=== PATIENT | female | born 1945 | race Caucasian/White ===

== ENCOUNTER 2017-04-19 13:03 | Inpatient (IN) | payer MEDICARE, OTHER ==
[~2017-04-19] VITALS: Ht 160 cm; Wt 54.4 kg
[~2017-04-19 13:03] MED LIST: Ampicillin/Sulbactam Sod 3 GM in NS 110 ML IVPB ONE; NS 1000ml 1,600 ML IVLG ONE
[2017-04-19 13:05] VITALS: BP 97/47
--- NOTE | 2017-04-19 13:30 | Diagnostic Imaging Report ---
Indication: Shortness of breath Technique: XRAY Chest 1v Comparison: None Findings: Heart size within normal limits. Atherosclerotic calcifications noted in the aorta. There are asymmetric patchy airspace opacities involving the left mid and lower lung. These findings are concerning for pneumonia. No exam pleural effusion. No definite pneumothorax. There is osteopenia and degenerative change of the spine. Degenerative change of the right shoulder also noted. Multiple surgical clips noted in the right upper quadrant. Impression: Asymmetric patchy airspace opacities in the left lung concerning for pneumonia. Clinical correlation and radiographic follow-up until resolution recommended.
[2017-04-19 13:46] LABS: HEMATOCRIT 36.7 % (37.0-47.0); HEMOGLOBIN 12.3 G/DL (12.0-16.0); MEAN CORPUSCULAR VOLUME 87 FL (80-99); PLATELET COUNT 387 K/UL (150-450); RED BLOOD COUNT 4.24 M/UL (4.20-5.40); RED CELL DISTRIBUTION WIDTH 12.3 % (11.6-14.8); WHITE BLOOD COUNT 19.5 K/UL (4.8-10.8)
--- NOTE | 2017-04-19 13:47 | Emergency Room Report ---
History of Present Illness General Chief Complaint: General Complaint Source: Medical Record Present Illness HPI Patient is a 71-year-old female who presented after a decreased blood pressure and fever. Patient about her skilled nursing. Patient noted have prior history dementia. Patient had been noted to be somewhat hypotensive. She was somewhat confused. History is limited by patient's mental status Allergies: Coded Allergies: PROCHLORPERAZINE (Verified Allergy, Intermediate, 04/19/17) Patient History Reviewed Nursing Documentation: PMH: Agreed, PSxH: Agreed Nursing Documentation-PMH Hx Diabetes: Yes Hx Neurological Problems: Yes - parkinsons,anemia Review of Systems All Other Systems: negative except mentioned in HPI Physical Exam Vital Signs Date Time Temp Pulse Resp B/P (MAP) Pulse Ox O2 Delivery O2 Flow Rate FiO2 04/19/17 12:41 98 16 96/41 99 Nasal Cannula 3.0 Sp02 EP Interpretation: reviewed, normal General Appearance: normal inspection, well appearing, alert, Chronically Ill Head: atraumatic ENT: normal ENT inspection, dry mucus membranes Neck: normal inspection, supple, no bony tend, limited range of motion Respiratory: normal inspection, no respiratory distress, no retraction, rales Cardiovascular #1: regular rate, rhythm, no edema Gastrointestinal: normal inspection, normal bowel sounds, non tender, soft, no guarding, no hernia Genitourinary: no CVA tenderness Musculoskeletal: normal inspection, back normal, normal range of motion Neurologic: normal inspection, responsive, speech normal Skin: normal inspection, normal color, no rash Medical Decision Making Diagnostic Impression: Primary Impression: Pneumonia Additional Impression: Severe sepsis ER Course Patient presented for fever. Differential diagnosis included wasn't limited to pneumonia, urinary tract infection, drug fever, allergic reaction, sepsis, cholecystitis, among others.Patient started on IV fluids as well as IV antibiotics after blood cultures are obtained. Patient was noted to have elevated lactic acid level. A repeat exam at 1430 showed slightly improvement in status and improved peripheral perfusion. A Hylton catheter was placed. Dr. Rupert Feldman was contacted for inpatient management Labs Test 04/19/17 13:38 White Blood Count 19.5 K/UL (4.8-10.8) Red Blood Count 4.24 M/UL (4.20-5.40) Hemoglobin 12.3 G/DL (12.0-16.0) Hematocrit 36.7 % (37.0-47.0) Mean Corpuscular Volume 87 FL (80-99) Mean Corpuscular Hemoglobin 29.1 PG (27.0-31.0) Mean Corpuscular Hemoglobin Concent 33.6 G/DL (32.0-36.0) Red Cell Distribution Width 12.3 % (11.6-14.8) Platelet Count 387 K/UL (150-450) Mean Platelet Volume 6.0 FL (6.5-10.1) Neutrophils (%) (Auto) % (45.0-75.0) Lymphocytes (%) (Auto) % (20.0-45.0) Monocytes (%) (Auto) % (1.0-10.0) Eosinophils (%) (Auto) % (0.0-3.0) Basophils (%) (Auto) % (0.0-2.0) Differential Total Cells Counted 100 Neutrophils % (Manual) 88 % (45-75) Lymphocytes % (Manual) 2 % (20-45) Monocytes % (Manual) 2 % (1-10) Eosinophils % (Manual) 0 % (0-3) Basophils % (Manual) 0 % (0-2) Band Neutrophils 8 % (0-8) Platelet Estimate Adequate Platelet Morphology Normal Red Blood Cell Morphology Normal Sodium Level 141 MMOL/L (136-145) Potassium Level 3.4 MMOL/L (3.5-5.1) Chloride Level 105 MMOL/L (98-107) Carbon Dioxide Level 27 MMOL/L (21-32) Anion Gap 9 mmol/L (5-15) Blood Urea Nitrogen 17 mg/dL (7-18) Creatinine 0.8 MG/DL (0.55-1.30) Estimat Glomerular Filtration Rate mL/min (>60) Glucose Level 150 MG/DL (74-106) Lactic Acid Level 3.70 mmol/L (0.66-2.22) Calcium Level 9.3 MG/DL (8.5-10.1) Total Bilirubin 0.8 MG/DL (0.2-1.0) Aspartate Amino Transf (AST/SGOT) 30 U/L (15-37) Alanine Aminotransferase (ALT/SGPT) 28 U/L (12-78) Alkaline Phosphatase 92 U/L (46-116) Total Creatine Kinase 473 U/L (26-308) Creatine Kinase MB 15.4 NG/ML (0.0-3.6) Creatine Kinase MB Relative Index 3.2 Troponin I 0.025 ng/mL (0.000-0.056) Total Protein 6.8 G/DL (6.4-8.2) Albumin 2.4 G/DL (3.4-5.0) Globulin 4.4 g/dL Albumin/Globulin Ratio 0.5 (1.0-2.7) EKG Diagnostic Results Rate: tachycardiac - 102 Rhythm: NSR ST Segments: no acute changes Last Vital Signs Date Time Temp Pulse Resp B/P (MAP) Pulse Ox O2 Delivery O2 Flow Rate FiO2 04/19/17 12:41 98 16 96/41 99 Nasal Cannula 3.0 Status: improved Disposition: ADMITTED INPATIENT Condition: Serious Servando German Apr 19, 2017 13:47
[2017-04-19 14:09] VITALS: BP 113/50
[2017-04-19] MEDS ORDERED: Unasyn 3gm Inj ONE (14:14)
[2017-04-19 14:19] LABS: ANION GAP 9 mmol/L (5-15); BLOOD UREA NITROGEN 17 mg/dL (7-18); CALCIUM 9.3 MG/DL (8.5-10.1); CARBON DIOXIDE 27 MMOL/L (21-32); CHLORIDE 105 MMOL/L (98-107); CREATININE 0.8 MG/DL (0.55-1.30); POTASSIUM 3.4 MMOL/L (3.5-5.1); SODIUM 141 MMOL/L (136-145)
[2017-04-19 14:29] LABS: ALANINE AMINOTRANSFERASE 28 U/L (12-78); ALBUMIN 2.4 G/DL (3.4-5.0); ALBUMIN/GLOBULIN RATIO 0.5 (1.0-2.7); ALKALINE PHOSPHATASE 92 U/L (46-116); ASPARTATE AMINO TRANSFERASE 30 U/L (15-37); BILIRUBIN,TOTAL 0.8 MG/DL (0.2-1.0); CKMB 15.4 NG/ML (0.0-3.6); CREATINE KINASE 473 U/L (26-308)
[2017-04-19 15:29] LABS: BILIRUBIN, URINE 1+ (NEGATIVE); COLOR,URINE BROWN; GLUCOSE, URINE (UA) NEGATIVE (NEGATIVE); KETONES,URINE 3+ (NEGATIVE); LEUKOCYTE ESTERASE ,URINE 1+ (NEGATIVE); NITRITE,URINE POSITIVE (NEGATIVE); PH,URINE 5 (4.5-8.0); PROTEIN,URINE 2+ (NEGATIVE); UROBILINOGEN,URINE 4 MG/DL (0.0-1.0)
[2017-04-19 15:32] LABS: APPEARANCE,URINE SLIGHTLY CLOUDY
[2017-04-19] MEDS ORDERED: UNOBMED (16:08)
[2017-04-19 16:15] VITALS: BP 105/53
[2017-04-19] MEDS ORDERED: LORazepam Inj 2mg/ml 1ml IV PRN (16:15)
[2017-04-19] MEDS ORDERED: Miralax 17gm pkt ORAL PRN (16:15)
[2017-04-19] MEDS ORDERED: Morphine Sulfate 4mg/ml Inj IVP PRN (16:15)
[2017-04-19] MEDS ORDERED: Albuterol/Ipratropium 3ml neb HHN PRN (16:15)
[2017-04-19 16:41] VITALS: BP 109/52
[2017-04-19] MEDS ORDERED: Cefepime HCl 2 GM in NS 110 ML IV SCH (17:30)
[2017-04-19] MEDS ORDERED: Vancomycin 1 GM in D5W 275 ML IVPB SCH (18:00)
--- NOTE | 2017-04-19 18:08 | Consultation ---
History of Present Illness General Date patient seen: Apr 19, 2017 Chief Complaint: General Complaint Referring physician: Dr. Almeida Reason for Consultation: dysnea Present Illness HPI 71-year-old female with hxof DM, HTN, Parkinson, dementia presented to ER after a decreased blood pressure and fever. Patient had been noted to be somewhat hypotensive and confused. History is limited by patient's mental status and all information is obtained form the pts chart. She is awake but doesn't answer to any questions. Allergies: Coded Allergies: PROCHLORPERAZINE (Verified Allergy, Intermediate, 04/19/17) Medication History Scheduled Ascorbic Acid (Ascorbic Acid), 500 MG ORAL DAILY, (Reported) Atorvastatin Calcium* (Atorvastatin Calcium*), 10 MG ORAL BEDTIME, (Reported) Docusate Sodium (Docusate Sodium), 100 MG ORAL TWICE A DAY, (Reported) Ergocalciferol (Vitamin D2)* (Vitamin D*), 50,000 UNIT ORAL ONCE A WEEK, ( Reported) Ferrous Sulfate (Ferrous Sulfate), 5 ML ORAL Q8HR, (Reported) Ipratropium/Albuterol Sulfate (DuoNeb 0.5-3(2.5)mg/3ml), 3 ML HHN Q6HR, ( Reported) Lactulose (Lactulose), 30 ML PO DAILY, (Reported) Levodopa/Carbidopa (Carbidopa-Levodopa 25-100 Tab), 2 TAB ORAL THREE TIMES A DAY , (Reported) Multivitamin With Minerals (Multivitamins With Minerals*), 1 TAB ORAL DAILY, ( Reported) Risperidone* (Risperdal*), 1 MG PO Q12HR, (Reported) Trazodone Hcl* (Desyrel*), 200 MG ORAL BEDTIME, (Reported) Scheduled PRN Acetaminophen* (Acetaminophen 325MG Tablet*), 650 MG ORAL Q6HR PRN for Mild Pain (Pain Scale 1-3), (Reported) Magnesium Hydroxide* (Milk Of Magnesia*), 30 ML ORAL DAILY PRN for Constipation, (Reported) [Maalox], 30 ML PO Q6HR PRN for To Patient Comfort, (Reported) Patient History Healthcare decision maker N Resuscitation status Advanced Directive on File Past Medical/Surgical History Past Medical/Surgical History: (1) Dementia (2) Parkinson disease (3) Pneumonia Review of Systems Constitutional: Reports: malaise, weakness Physical Exam General Appearance: WD/WN Lines, tubes and drains: peripheral HEENT: normocephalic, atraumatic Neck: non-tender, normal alignment Respiratory/Chest: chest wall non-tender, normal breath sounds Breasts: no masses Cardiovascular/Chest: normal peripheral pulses Abdomen: normal bowel sounds, non tender Genitourinary/Rectal: normal genital exam, normal rectal exam, normal prostate exam Extremities: normal range of motion Skin Exam: normal pigmentation Last 24 Hour Vital Signs Date Time Temp Pulse Resp B/P (MAP) Pulse Ox O2 Delivery O2 Flow Rate FiO2 04/19/17 16:45 99.0 99 23 109/52 94 Room Air 99.0 04/19/17 16:41 99.0 99 23 109/52 94 Room Air 99.0 04/19/17 16:15 99.0 101 23 105/53 94 Room Air 99.0 04/19/17 14:09 107 22 113/50 95 Room Air 04/19/17 13:05 99.4 105 32 97/47 89 Room Air 99.4 04/19/17 12:41 98 16 96/41 99 Nasal Cannula 3.0 Laboratory Tests Test 04/19/17 13:38 04/19/17 15:00 White Blood Count 19.5 K/UL (4.8-10.8) H Red Blood Count 4.24 M/UL (4.20-5.40) Hemoglobin 12.3 G/DL (12.0-16.0) Hematocrit 36.7 % (37.0-47.0) L Mean Corpuscular Volume 87 FL (80-99) Mean Corpuscular Hemoglobin 29.1 PG (27.0-31.0) Mean Corpuscular Hemoglobin Concent 33.6 G/DL (32.0-36.0) Red Cell Distribution Width 12.3 % (11.6-14.8) Platelet Count 387 K/UL (150-450) Mean Platelet Volume 6.0 FL (6.5-10.1) L Neutrophils (%) (Auto) % (45.0-75.0) Lymphocytes (%) (Auto) % (20.0-45.0) Monocytes (%) (Auto) % (1.0-10.0) Eosinophils (%) (Auto) % (0.0-3.0) Basophils (%) (Auto) % (0.0-2.0) Differential Total Cells Counted 100 Neutrophils % (Manual) 88 % (45-75) H Lymphocytes % (Manual) 2 % (20-45) L Monocytes % (Manual) 2 % (1-10) Eosinophils % (Manual) 0 % (0-3) Basophils % (Manual) 0 % (0-2) Band Neutrophils 8 % (0-8) Platelet Estimate Adequate Platelet Morphology Normal Red Blood Cell Morphology Normal Sodium Level 141 MMOL/L (136-145) Potassium Level 3.4 MMOL/L (3.5-5.1) L Chloride Level 105 MMOL/L (98-107) Carbon Dioxide Level 27 MMOL/L (21-32) Anion Gap 9 mmol/L (5-15) Blood Urea Nitrogen 17 mg/dL (7-18) Creatinine 0.8 MG/DL (0.55-1.30) Estimat Glomerular Filtration Rate mL/min (>60) Glucose Level 150 MG/DL (74-106) H Lactic Acid Level 3.70 mmol/L (0.66-2.22) H 4.90 mmol/L (0.66-2.22) H Calcium Level 9.3 MG/DL (8.5-10.1) Total Bilirubin 0.8 MG/DL (0.2-1.0) Aspartate Amino Transf (AST/SGOT) 30 U/L (15-37) Alanine Aminotransferase (ALT/SGPT) 28 U/L (12-78) Alkaline Phosphatase 92 U/L (46-116) Total Creatine Kinase 473 U/L (26-308) H Creatine Kinase MB 15.4 NG/ML (0.0-3.6) H Creatine Kinase MB Relative Index 3.2 Troponin I 0.025 ng/mL (0.000-0.056) Total Protein 6.8 G/DL (6.4-8.2) Albumin 2.4 G/DL (3.4-5.0) L Globulin 4.4 g/dL Albumin/Globulin Ratio 0.5 (1.0-2.7) L Urine Color Brown Urine Appearance Slightly cloudy Urine pH 5 (4.5-8.0) Urine Specific [place] 1.025 (1.005-1.035) Urine Protein 2+ (NEGATIVE) H Urine Glucose (UA) Negative (NEGATIVE) Urine Ketones 3+ (NEGATIVE) H Urine Occult Blood 4+ (NEGATIVE) H Urine Nitrite Positive (NEGATIVE) H Urine Bilirubin 1+ (NEGATIVE) H Urine Ictotest Negative Urine Urobilinogen 4 MG/DL (0.0-1.0) H Urine Leukocyte Esterase 1+ (NEGATIVE) H Urine RBC 10-15 /HPF (0 - 2) H Urine WBC 5-10 /HPF (0 - 2) H Urine Squamous Epithelial Cells Moderate /LPF (NONE/OCC) H Urine Amorphous Sediment Few /LPF (NONE) H Urine Bacteria Moderate /HPF (NONE) H Height (Feet): 5 Height (Inches): 3.00 Weight (Pounds): 120 Medications Current Medications Medications (Trade) Dose Ordered Sig/Carrie Route PRN Reason Start Time Stop Time Status Last Admin Dose Admin Acetaminophen (Tylenol) 650 mg Q4H PRN ORAL T>100.5 04/19/17 16:15 05/19/17 16:14 Albuterol/ Ipratropium (Albuterol/ Ipratropium) 3 ml Q4H PRN HHN Shortness of Breath 04/19/17 16:15 04/24/17 16:14 Cefepime HCl 2 gm/ Sodium Chloride 110 ml @ 220 mls/hr DAILY@1730 IV 04/19/17 17:30 04/26/17 17:29 Dextrose (Dextrose 50%) STAT PRN IV Hypoglycemia 04/19/17 16:15 05/19/17 16:14 Heparin Sodium (Porcine) (Heparin 5000 units/ml) 5,000 units EVERY 12 HOURS SUBQ 04/19/17 21:00 05/19/17 20:59 Insulin Aspart (NovoLOG) BEFORE MEALS AND HS SUBQ 04/19/17 17:15 05/19/17 17:14 Lorazepam (Ativan 2mg/ml 1ml) 2 mg Q2H PRN IV For Anxiety 04/19/17 16:15 04/26/17 16:14 Morphine Sulfate (Morphine Sulfate) 4 mg Q4H PRN IVP Severe Pain (Pain Scale 7-10) 04/19/17 16:15 04/26/17 16:14 Ondansetron HCl (Zofran) 4 mg Q6H PRN IVP Nausea & Vomiting 04/19/17 16:15 05/19/17 16:14 Polyethylene Glycol (Miralax) 17 gm DAILYPRN PRN ORAL Constipation 04/19/17 16:15 05/19/17 16:14 Sodium Chloride 1,000 ml @ 50 mls/hr Q20H IV 04/19/17 17:30 05/19/17 17:29 Vancomycin HCl (Vanco rx to dose) 1 ea DAILY PRN MISC RX TO DOSE PROTOCOL 04/19/17 16:45 05/19/17 16:44 Vancomycin HCl 1 gm/Dextrose 275 ml @ 183.3 mls/ hr DAILY@1800 IVPB 04/19/17 18:00 04/24/17 17:59 Assessment/Plan Problem List: (1) Pneumonia ICD Codes: J18.9 - Pneumonia, unspecified organism SNOMED: 738332774 (2) Severe sepsis ICD Codes: A41.9 - Sepsis, unspecified organism; R65.20 - Severe sepsis without septic shock SNOMED: 36030822 (3) Dementia ICD Codes: F03.90 - Unspecified dementia without behavioral disturbance SNOMED: 03126154 (4) Parkinson disease ICD Codes: G20 - Parkinson's disease SNOMED: 17576651 Assessment/Plan iv abx respiratory treatment chest PT swallow study check wbc neurology to see dvt prophylaxis. CASH COLBERT Apr 19, 2017 18:08
[2017-04-19] MEDS: NovoLOG Insulin Flexpen SUBQ SCH ×2 (18:27→21:24)
[2017-04-19 20:00] VITALS: BP 103/51
[2017-04-19] MEDS: Heparin 5000 units/ml inj SUBQ SCH (21:23)
[2017-04-19] MEDS ORDERED: Potassium Chloride 40 MEQ in Sodium Chloride 500ML 550 ML IVPB ONE (21:30)
[2017-04-20] VITALS (7 sets, daily range): BP systolic 97–124; BP diastolic 53–72
[2017-04-20] MEDS ORDERED: ATORVASTATIN CA20 MG ORAL (02:41)
[2017-04-20] MEDS ORDERED: RISPERDAL1 MG PO (02:41)
[2017-04-20] MEDS ORDERED: ASCORBIC ACID500 M3 ORAL (02:41)
[2017-04-20] MEDS ORDERED: TRAZODONE HCL100 MG ORAL (02:41)
[2017-04-20] MEDS ORDERED: MILK OF MA400 MG/51 ORAL (02:41)
[2017-04-20] MEDS ORDERED: VITAMIN D250000 UNI1 ORAL (02:41)
[2017-04-20] MEDS ORDERED: LACTULOSE20 GM/301 ORAL (02:41)
[2017-04-20] MEDS ORDERED: COLACE250 MG ORAL (02:41)
[2017-04-20] MEDS ORDERED: MULTIVITAMINS1 EAC8 ORAL (02:41)
[2017-04-20] MEDS ORDERED: SINEMET 25/1001 EA ORAL (02:41)
[2017-04-20] MEDS ORDERED: LACTULOSE10 GM/153 PO ×2 (02:41→02:52)
[2017-04-20] MEDS ORDERED: DUONEB 0.5-3(2.53 ML HHN (02:41)
[2017-04-20] MEDS ORDERED: ACETAMINOPHEN325 M1 ORAL (02:41)
[2017-04-20] MEDS ORDERED: FERROUS SU300 MG/5 M ORAL (02:44)
[2017-04-20] MEDS ORDERED: ASCORBIC ACID500 MG ORAL (02:44)
[2017-04-20] MEDS ORDERED: Maalox PO (02:48)
[2017-04-20] MEDS: NovoLOG Insulin Flexpen SUBQ SCH ×2 (06:23→11:30)
[2017-04-20 07:16] LABS: BASOPHILS % (AUTO) 0.7 % (0.0-2.0); EOSINOPHILS % (AUTO) 3.8 % (0.0-3.0); HEMATOCRIT 31.7 % (37.0-47.0); HEMOGLOBIN 10.7 G/DL (12.0-16.0); LYMPHOCYTES % (AUTO) 7.2 % (20.0-45.0); MEAN CORPUSCULAR VOLUME 86 FL (80-99); MONOCYTES % (AUTO) 4.6 % (1.0-10.0); NEUTROPHILS % (AUTO) 83.7 % (45.0-75.0); PLATELET COUNT 324 K/UL (150-450); RED BLOOD COUNT 3.71 M/UL (4.20-5.40); RED CELL DISTRIBUTION WIDTH 12.2 % (11.6-14.8); WHITE BLOOD COUNT 16.1 K/UL (4.8-10.8)
[2017-04-20 07:22] LABS: ANION GAP 5 mmol/L (5-15); BLOOD UREA NITROGEN 19 mg/dL (7-18); CALCIUM 8.5 MG/DL (8.5-10.1); CARBON DIOXIDE 27 MMOL/L (21-32); CHLORIDE 109 MMOL/L (98-107); CREATININE 0.5 MG/DL (0.55-1.30); PHOSPHORUS 2.4 MG/DL (2.5-4.9); POTASSIUM 3.6 MMOL/L (3.5-5.1); SODIUM 141 MMOL/L (136-145)
[2017-04-20] MEDS: Heparin 5000 units/ml inj SUBQ SCH (09:27)
--- NOTE | 2017-04-20 13:05 | Pulmonology Progress Note ---
Assessment/Plan Problems: (1) Pneumonia (2) Severe sepsis (3) Dementia (4) Parkinson disease Assessment/Plan improving continue abx check cultures dvt prohylaxis cxr and labs in am Subjective ROS Limited/Unobtainable: No Constitutional: Reports: no symptoms HEENT: Repors: no symptoms Respiratory: Reports: no symptoms Allergies: Coded Allergies: PROCHLORPERAZINE (Verified Allergy, Intermediate, 04/19/17) Objective Last 24 Hour Vital Signs Date Time Temp Pulse Resp B/P (MAP) Pulse Ox O2 Delivery O2 Flow Rate FiO2 04/20/17 07:49 97.3 92 20 122/70 97 Room Air 97.3 04/20/17 07:36 96 20 Room Air 21 04/20/17 04:00 97.9 92 21 97/53 95 Room Air 97.9 04/20/17 04:00 85 04/20/17 00:00 90 04/20/17 00:00 97.9 96 21 101/58 95 Room Air 97.9 04/19/17 20:00 97.9 100 23 103/51 94 Room Air 97.9 04/19/17 20:00 96 04/19/17 19:46 96 22 Room Air 04/19/17 16:45 99.0 99 23 109/52 94 Room Air 99.0 04/19/17 16:41 99.0 99 23 109/52 94 Room Air 99.0 04/19/17 16:15 99.0 101 23 105/53 94 Room Air 99.0 04/19/17 14:09 107 22 113/50 95 Room Air 04/19/17 13:05 99.4 105 32 97/47 89 Room Air 99.4 Intake and Output 04/19/17 04/20/17 19:00 07:00 Intake Total 1110 ml 920.0 ml Output Total 50 ml 125 ml Balance 1060 ml 795.0 ml Intake IV Total 1110 ml 920.0 ml Output Urine Total 50 ml 125 ml # Bowel Movements 2 1 Objective General Appearance: WD/WN Lines, tubes and drains: peripheral HEENT: normocephalic, atraumatic Neck: non-tender, normal alignment Respiratory/Chest: chest wall non-tender, normal breath sounds Breasts: no masses Cardiovascular/Chest: normal peripheral pulses Abdomen: normal bowel sounds, non tender Extremities: normal range of motion Skin Exam: normal pigmentation Microbiology Date/Time Source Procedure Growth Status 04/19/17 15:00 Urine,Clean Catch Urine Culture - Preliminary Resulted Laboratory Tests 04/19/17 13:38: White Blood Count 19.5H, Red Blood Count 4.24, Hemoglobin 12.3, Hematocrit 36.7L , Mean Corpuscular Volume 87, Mean Corpuscular Hemoglobin 29.1, Mean Corpuscular Hemoglobin Concent 33.6, Red Cell Distribution Width 12.3, Platelet Count 387, Mean Platelet Volume 6.0L, Neutrophils (%) (Auto) , Lymphocytes (%) ( Auto) , Monocytes (%) (Auto) , Eosinophils (%) (Auto) , Basophils (%) (Auto) , Differential Total Cells Counted 100, Neutrophils % (Manual) 88H, Lymphocytes % (Manual) 2L, Monocytes % (Manual) 2, Eosinophils % (Manual) 0, Basophils % ( Manual) 0, Band Neutrophils 8, Platelet Estimate Adequate, Platelet Morphology Normal, Red Blood Cell Morphology Normal, Sodium Level 141, Potassium Level 3.4L , Chloride Level 105, Carbon Dioxide Level 27, Anion Gap 9, Blood Urea Nitrogen 17, Creatinine 0.8, Estimat Glomerular Filtration Rate , Glucose Level 150H, Lactic Acid Level 3.70H, Calcium Level 9.3, Total Bilirubin 0.8, Aspartate Amino Transf (AST/SGOT) 30, Alanine Aminotransferase (ALT/SGPT) 28, Alkaline Phosphatase 92, Total Creatine Kinase 473H, Creatine Kinase MB 15.4H, Creatine Kinase MB Relative Index 3.2, Troponin I 0.025, Total Protein 6.8, Albumin 2.4L , Globulin 4.4, Albumin/Globulin Ratio 0.5L 04/19/17 15:00: Lactic Acid Level 4.90H, Urine Color Brown, Urine Appearance Slightly cloudy, Urine pH 5, Urine Specific [place] 1.025, Urine Protein 2+H, Urine Glucose (UA) Negative, Urine Ketones 3+H, Urine Occult Blood 4+H, Urine Nitrite PositiveH, Urine Bilirubin 1+H, Urine Ictotest Negative, Urine Urobilinogen 4H, Urine Leukocyte Esterase 1+H, Urine RBC 10-15H, Urine WBC 5-10H, Urine Squamous Epithelial Cells ModerateH, Urine Amorphous Sediment FewH, Urine Bacteria ModerateH 04/19/17 19:00: Stool Occult Blood Negative 04/20/17 06:40: White Blood Count 16.1H, Red Blood Count 3.71L, Hemoglobin 10.7L, Hematocrit 31.7L, Mean Corpuscular Volume 86, Mean Corpuscular Hemoglobin 28.8, Mean Corpuscular Hemoglobin Concent 33.7, Red Cell Distribution Width 12.2, Platelet Count 324, Mean Platelet Volume 6.4L, Neutrophils (%) (Auto) 83.7H, Lymphocytes (%) (Auto) 7.2L, Monocytes (%) (Auto) 4.6, Eosinophils (%) (Auto) 3.8H, Basophils (%) (Auto) 0.7, Sodium Level 141, Potassium Level 3.6, Chloride Level 109H, Carbon Dioxide Level 27, Anion Gap 5, Blood Urea Nitrogen 19H, Creatinine 0.5L, Estimat Glomerular Filtration Rate , Glucose Level 88, Calcium Level 8.5, Albumin 2.0L, Phosphorus Level 2.4L Current Medications Medications (Trade) Dose Ordered Sig/Carrie Route PRN Reason Start Time Stop Time Status Last Admin Dose Admin Acetaminophen (Tylenol) 650 mg Q4H PRN ORAL T>100.5 04/19/17 16:15 05/19/17 16:14 Albuterol/ Ipratropium (Albuterol/ Ipratropium) 3 ml Q4H PRN HHN Shortness of Breath 04/19/17 16:15 04/24/17 16:14 Cefepime HCl 2 gm/ Sodium Chloride 110 ml @ 220 mls/hr DAILY@1730 IV 04/19/17 17:30 04/26/17 17:29 04/19/17 18:25 Dextrose (Dextrose 50%) STAT PRN IV Hypoglycemia 04/19/17 16:15 05/19/17 16:14 Heparin Sodium (Porcine) (Heparin 5000 units/ml) 5,000 units EVERY 12 HOURS SUBQ 04/19/17 21:00 05/19/17 20:59 04/20/17 09:27 Insulin Aspart (NovoLOG) BEFORE MEALS AND HS SUBQ 04/19/17 17:15 05/19/17 17:14 04/19/17 21:24 Lorazepam (Ativan 2mg/ml 1ml) 2 mg Q2H PRN IV For Anxiety 04/19/17 16:15 04/26/17 16:14 Morphine Sulfate (Morphine Sulfate) 4 mg Q4H PRN IVP Severe Pain (Pain Scale 7-10) 04/19/17 16:15 04/26/17 16:14 Ondansetron HCl (Zofran) 4 mg Q6H PRN IVP Nausea & Vomiting 04/19/17 16:15 05/19/17 16:14 Polyethylene Glycol (Miralax) 17 gm DAILYPRN PRN ORAL Constipation 04/19/17 16:15 05/19/17 16:14 Sodium Chloride 1,000 ml @ 50 mls/hr Q20H IV 04/19/17 17:30 05/19/17 17:29 04/19/17 18:25 Vancomycin HCl (Vanco rx to dose) 1 ea DAILY PRN MISC RX TO DOSE PROTOCOL 04/19/17 16:45 05/19/17 16:44 Vancomycin HCl 1 gm/Dextrose 275 ml @ 183.3 mls/ hr DAILY@1800 IVPB 04/19/17 18:00 04/24/17 17:59 04/19/17 18:25 CASH COLBERT Apr 20, 2017 13:05
--- NOTE | 2017-04-20 13:58 | Consultation ---
Consult Note Consult Note ID DIC # [id number] VICENTA LOVING M.D. Apr 20, 2017 13:57
[2017-04-20] MEDS ORDERED: PCA Morphine 1mg/ml 30 ML IV PRN (15:00)
[2017-04-20] MEDS ORDERED: Rate Change Narcotic Drip MISC PRN ×2 (15:15→17:00)
[2017-04-20] MEDS ORDERED: Morphine Sulfate 4mg/ml Inj SUBQ PRN ×2 (15:15→18:15)
--- NOTE | 2017-04-20 16:15 | History & Physical ---
History and Physical History & Physicial Dictated for Int Med Dr Feldman no. [id number]. VIJAYA GAMBOA Apr 20, 2017 16:15
[2017-04-20] MEDS ORDERED: Albuterol/Ipratropium 3ml neb HHN PRN (17:30)
[2017-04-20] MEDS ORDERED: LORazepam Inj 2mg/ml 1ml IV PRN (17:30)
[2017-04-20] MEDS ORDERED: Narcotic Shift Volume MISC SCH (19:00)
[2017-04-20] MEDS: PCA Morphine 1mg/ml 30 ML IV PRN (19:53)
[2017-04-20] MEDS: Narcotic Shift Volume MISC SCH (20:00)
--- NOTE | 2017-04-20 20:47 | Consultation ---
DATE OF CONSULTATION: 04/20/2017 INFECTIOUS DISEASES CONSULTATION CONSULTING PHYSICIAN: Ravinder Wagner M.D. REFERRING PHYSICIAN: Nolan Marrero M.D. REASON FOR CONSULTATION: Evaluation of the patient for pneumonia and fever, antibiotic management. HISTORY OF PRESENT ILLNESS: The patient is a 71-year-old female, poor historian, who was transferred from assisted to this medical center for sepsis, fever, and cough. The patient was admitted with impression of pneumonia. At the time of admission, the patient was found to be hypotensive. The patient has been started on IV antibiotics in the emergency room. Infectious Diseases consultation has been requested for further evaluation of the patient's antibiotic management. PAST MEDICAL HISTORY: 1. Dementia. 2. Diabetes. 3. Anemia. 4. Parkinson disease. MEDICATIONS: Vancomycin and cefepime. ALLERGIES: No allergies to antibiotics. SOCIAL HISTORY: The patient lives in assisted. FAMILY HISTORY: Not available. REVIEW OF SYSTEMS: Unobtainable. PHYSICAL EXAMINATION: VITAL SIGNS: Temperature 97 degrees, blood pressure 122/73, pulse 86, and respiratory rate 18. HEENT: Mild pale conjunctivae. No icterus. NECK: No lymphadenopathy. CHEST: Shallowed breathing. No crackles. HEART: S1 and S2. ABDOMEN: Soft and nontender. EXTREMITIES: No cyanosis at this time. NEUROLOGIC: Lethargic. LABORATORY AND DIAGNOSTIC DATA: White blood cells 16 and at time of admission 19, hemoglobin 10, and platelet 324. UA, 10 to 15 red blood cells and 5 to 10 white blood cells. BUN 19 and creatinine 0.9. ALT, AST, and alkaline phosphatase unremarkable. Urine culture pending. Chest x-ray patchy airspace disease in the left lung concerning for pneumonia. ASSESSMENT: The patient is a 71-year-old female with: 1. Fever prior to admission. 2. Leukocytosis. 3. Sepsis. 4. Left lower lobe infiltrate suggestive of healthcare associated versus aspiration pneumonia. 5. Rule out urinary tract infection and bacteremia. PLAN: 1. We will continue the patient on vancomycin and Zosyn for now day #1. 2. Monitor CBC. 3. Monitor BMP. 4. Monitor cultures (blood, urine, and sputum). 5. Monitor chest x-ray. 6. The patient is Do Not Resuscitate. Thank you, Dr. Marrero, for allowing me to participate in the care of this patient. I will follow the patient with you during this hospitalization. Ravinder Wagner M.D. DR: ALVARO JOB#: [id number] CC:
--- NOTE | 2017-04-20 21:02 | History and Physical Report ---
DATE OF ADMISSION: 04/19/2017 CHIEF COMPLAINT: The patient is a 71-year-old white female, presents with chief complaint of low blood pressure and fever. HISTORY OF PRESENT ILLNESS: The patient is a resident of [facility]. The patient herself is unable to contribute much to the history and physical. The patient has a history of Alzheimer's dementia. Much of the history and physical is obtained from the patient's chart. According to staff at [facility], the patient began to experience fever yesterday, 04/19/2017. The patient was found to have blood pressure of 90/50. The patient was transported to [facility] emergency room. Upon arrival at [facility] emergency room, the patient was found to have blood pressure of 96/41. The patient is admitted for hypotension and fever to rule out sepsis. PAST MEDICAL HISTORY: Significant for 1. Diabetes type 2. 2. Depression. 3. Parkinson disease. 4. Anemia. PAST SURGICAL HISTORY: Significant for 1. Left hip open reduction and internal fixation. 2. Left knee surgery. MEDICATIONS: Current medications from [facility]. 1. Tylenol 650 mg p.o. q.8 h. p.r.n. 2. Ascorbic acid 500 mg p.o. daily. 3. Atorvastatin 10 mg p.o. at bedtime. 4. Sinemet 25/100 mg two tablets p.o. three times daily. 5. Colace 100 mg p.o. twice daily. 6. DuoNeb nebulize q.6 h. p.r.n. 7. Vitamin D 50,000 units p.o. daily. 8. Iron sulfate 300 mg p.o. q.8 h. 9. Lactulose 30 mL p.o. daily. 10. Multivitamin tablet p.o. daily. 11. Risperdal 1 mg one tablet p.o. twice daily. 12. Trazodone 200 mg p.o. at bedtime. ALLERGIES: To prochlorperazine (Compazine). SOCIAL HISTORY: The patient denies tobacco or alcohol use. The patient is a resident of [facility]. REVIEW OF SYSTEMS: Unable to assess secondary to the patient's mental status. PHYSICAL EXAMINATION: GENERAL: The patient is a well-developed and well-nourished nonverbal white female, no apparent distress. VITAL SIGNS: Temperature 97.9 degrees, respirations 21, pulse 96, and blood pressure in the emergency room 96/41. HEENT: Eyes, pupils equal and responsive to light and accommodation. Extraocular movements are intact. NECK: Supple without lymphadenopathy. CHEST: Decreased breath sounds bilaterally with expiratory wheezes. Otherwise, clear to auscultation without wheezes or rales. CARDIOVASCULAR: Regular rhythm and rate. S1 and S2 normal without murmurs, rubs, and gallops. ABDOMEN: Soft, nontender, and nondistended with positive bowel sounds. No evidence of hepatosplenomegaly. Currently, no rebound or guarding noted. EXTREMITIES: Negative for clubbing, cyanosis, or edema. RECTAL/GENITAL: Not performed. NEUROLOGIC: Cranial nerves II through XII are grossly intact without focal deficits. LABORATORY AND DIAGNOSTIC DATA: WBC 19.5, hemoglobin 12.3, hematocrit 36.7 and platelets 387,000. Sodium 141, potassium 3.4, chloride 105, CO2 27, BUN 17, creatinine 0.8 and glucose 150. Lactic acid 3.70. Troponin 0.025. Chest x-ray revealed patchy left lung airspace opacities consistent with pneumonia. ASSESSMENT: This is a 71-year-old white female 1. Fever. 2. Hypotension. 3. Left-sided pneumonia. 4. Altered mental status. 5. Diabetes type 2. 6. Parkinson disease. 7. Alzheimer's dementia. 8. Iron deficiency anemia. 9. Depression. TREATMENT: 1. Fever/hypotension/left pneumonia. A Pulmonary consultation will be obtained with Dr. Nolan Marrero. The patient has been started empirically on intravenous cefepime and vancomycin. An Infectious Disease consultation has been obtained with Dr. Wagner. We will follow recommendations of Infectious Disease and Pulmonary. 2. Altered mental status is probably secondary to pneumonia and sepsis as above. 3. Diabetes type 2. A NovoLog sliding scale has been instituted. 4. Parkinson's disease. Continue Sinemet as above. 5. Iron deficiency anemia. Continue iron sulfate as above. 6. Depression. Continue trazodone and Risperdal as above. Dashawn Almeida M.D. DR: AUDELIA JOB#: [id number] CC:
[2017-04-21 00:06] VITALS: BP 115/77
[2017-04-21] MEDS: PCA Morphine 1mg/ml 30 ML IV PRN ×4 (01:45→20:19)
[2017-04-21 04:27] VITALS: BP 92/43
[2017-04-21] MEDS: Narcotic Shift Volume MISC SCH ×2 (07:13→19:00)
[2017-04-21 08:04] VITALS: BP 91/52
--- NOTE | 2017-04-21 08:37 | Diagnostic Imaging Report ---
Indication: Dyspnea Technique: One view of the chest Comparison: 04/19/2017 Findings: Interstitial and airspace opacities in the left lung are slightly more extensive than on the prior study. The right lung and bilateral pleural spaces remain clear. Right upper quadrant surgical clips are again demonstrated Impression: Increasing left lung infiltrate, over 2 days
--- NOTE | 2017-04-21 10:58 | Infectious Diseases Prog Note ---
Assessment/Plan Assessment/Plan ERROR pt is comfortcare will not follow Subjective Allergies: Coded Allergies: PROCHLORPERAZINE (Verified Allergy, Intermediate, 04/19/17) Objective Vital Signs Last 24 Hour Vital Signs Date Time Temp Pulse Resp B/P (MAP) Pulse Ox O2 Delivery O2 Flow Rate FiO2 04/21/17 08:18 98.8 04/21/17 08:04 98.8 87 18 91/52 92 98.8 04/21/17 07:48 97.9 04/21/17 07:25 91 18 Room Air 21 04/21/17 04:27 97.9 87 20 92/43 93 Room Air 97.9 04/21/17 01:45 97.5 04/21/17 00:06 97.5 84 20 115/77 93 Room Air 97.5 04/20/17 20:00 95 20 Room Air 21 04/20/17 19:53 96.8 04/20/17 19:29 96.8 102 20 121/72 100 Room Air 96.8 04/20/17 17:00 98.6 86 20 105/55 98 98.6 04/20/17 16:00 97.2 105 20 124/67 96 Room Air 97.2 04/20/17 12:00 98 04/20/17 12:00 97.2 104 19 111/60 94 Room Air 97.2 Height (Feet): 5 Height (Inches): 3.00 Weight (Pounds): 120 Microbiology Date/Time Source Procedure Growth Status 04/19/17 14:30 Blood Blood Culture - Preliminary NO GROWTH AFTER 24 HOURS Resulted 04/19/17 14:15 Blood Blood Culture - Preliminary NO GROWTH AFTER 24 HOURS Resulted 04/19/17 15:00 Urine,Clean Catch Urine Culture - Preliminary Streptococcus Species Resulted Current Medications Medications (Trade) Dose Ordered Sig/Carrie Route PRN Reason Start Time Stop Time Status Last Admin Dose Admin Acetaminophen (Tylenol) 650 mg Q4H PRN ORAL T>100.5 04/20/17 17:30 05/19/17 17:29 Albuterol/ Ipratropium (Albuterol/ Ipratropium) 3 ml Q4H PRN HHN Shortness of Breath 04/20/17 17:30 04/24/17 17:29 Dextrose (Dextrose 50%) STAT PRN IV Hypoglycemia 04/21/17 17:30 05/19/17 17:29 Lorazepam (Ativan 2mg/ml 1ml) 2 mg Q2H PRN IV For Anxiety 04/20/17 17:30 04/26/17 17:29 Miscellaneous Medication (Narcotic Drip Rate Change) 1 ea DAILY PRN MISC . 04/20/17 17:00 05/20/17 16:59 Miscellaneous Medication (Narcotic Shift Volume) 1 ea Q12HR@0700,1900 MISC 04/20/17 19:00 05/20/17 18:59 04/21/17 07:13 Morphine Sulfate 30 ml @ 5 mls/hr SUGAR DRIER Protocol PRN IV COMFORT CARE 04/20/17 17:00 05/20/17 16:59 04/21/17 07:48 Morphine Sulfate (Morphine Sulfate) 4 mg Q3H PRN SUBQ Breakthrough pain / RR > 30 04/20/17 18:15 04/26/17 16:14 Ondansetron HCl (Zofran) 4 mg Q6H PRN IVP Nausea & Vomiting 04/20/17 17:30 05/19/17 17:29 Polyethylene Glycol (Miralax) 17 gm DAILYPRN PRN ORAL Constipation 04/21/17 17:30 05/19/17 17:29 VICENTA LOVING M.D. Apr 21, 2017 10:58
[2017-04-21 12:20] VITALS: BP 87/49
--- NOTE | 2017-04-21 15:35 | Internal Med Progress Note ---
Subjective Date of Service: Apr 21, 2017 Physician Name Vijaya Gamboa Attending Physician Rupert Feldman MD Current Medications Medications (Trade) Dose Ordered Sig/Carrie Route PRN Reason Start Time Stop Time Status Last Admin Dose Admin Acetaminophen (Tylenol) 650 mg Q4H PRN ORAL T>100.5 04/20/17 17:30 05/19/17 17:29 Albuterol/ Ipratropium (Albuterol/ Ipratropium) 3 ml Q4H PRN HHN Shortness of Breath 04/20/17 17:30 04/24/17 17:29 Dextrose (Dextrose 50%) STAT PRN IV Hypoglycemia 04/21/17 17:30 05/19/17 17:29 Lorazepam (Ativan 2mg/ml 1ml) 2 mg Q2H PRN IV For Anxiety 04/20/17 17:30 04/26/17 17:29 Miscellaneous Medication (Narcotic Drip Rate Change) 1 ea DAILY PRN MISC . 04/20/17 17:00 05/20/17 16:59 Miscellaneous Medication (Narcotic Shift Volume) 1 ea Q12HR@0700,1900 MISC 04/20/17 19:00 05/20/17 18:59 04/21/17 07:13 Morphine Sulfate 30 ml @ 5 mls/hr NEWS SPECIALIST Protocol PRN IV COMFORT CARE 04/20/17 17:00 05/20/17 16:59 04/21/17 14:00 Morphine Sulfate (Morphine Sulfate) 4 mg Q3H PRN SUBQ Breakthrough pain / RR > 30 04/20/17 18:15 04/26/17 16:14 Ondansetron HCl (Zofran) 4 mg Q6H PRN IVP Nausea & Vomiting 04/20/17 17:30 05/19/17 17:29 Polyethylene Glycol (Miralax) 17 gm DAILYPRN PRN ORAL Constipation 04/21/17 17:30 05/19/17 17:29 Allergies: Coded Allergies: PROCHLORPERAZINE (Verified Allergy, Intermediate, 04/19/17) ROS Limited/Unobtainable: Yes Subjective 71 YO F admitted with fever and hypotension. Now left pneumonia. Comfort care protocol. Cover for Int Hugh-Dr. Feldman Objective Last Vital Signs Date Time Temp Pulse Resp B/P (MAP) Pulse Ox O2 Delivery O2 Flow Rate FiO2 04/21/17 14:30 97.7 04/21/17 12:20 82 20 87/49 89 04/21/17 07:25 Room Air 21 04/19/17 12:41 3.0 General Appearance: WD/WN, mild distress, lethargic EENT: normal ENT inspection Neck: non-tender, normal alignment, supple Cardiovascular: normal peripheral pulses, normal rate, regular rhythm, no gallop/murmur, no JVD Respiratory/Chest: respiratory distress, crackles/rales, rhonchi - bilaterally , expiratory wheezing Abdomen: normal bowel sounds, non tender, soft, no organomegaly, no mass Extremities: normal range of motion, non-tender Skin: normal pigmentation, warm/dry Microbiology Date/Time Source Procedure Growth Status 04/19/17 14:30 Blood Blood Culture - Preliminary NO GROWTH AFTER 24 HOURS Resulted 04/19/17 14:15 Blood Blood Culture - Preliminary NO GROWTH AFTER 24 HOURS Resulted 04/19/17 15:00 Urine,Clean Catch Urine Culture - Preliminary Streptococcus Species Resulted Intake and Output 04/20/17 04/21/17 19:00 07:00 Intake Total 200 ml 80 ml Output Total 250 ml Balance 200 ml -170 ml Intake Oral 30 ml IV Total 200 ml 50 ml Output Urine Total 250 ml # Bowel Movements 2 Assessment/Plan Problem List: (1) Alzheimer's dementia (2) Iron deficiency anemia (3) Depression (4) Leukocytosis (5) Altered mental status (6) Fever (7) Diabetes mellitus, type II (8) Pneumonia Assessment & Plan: Off antibiotics-see ID note. (9) Severe sepsis (10) Parkinson disease (11) Dysphagia Assessment & Plan: see swallow eval Assessment/Plan Comfort care protocol per family request VIJAYA GAMBOA Apr 21, 2017 15:34
[2017-04-21 16:00] VITALS: BP 101/56
[2017-04-21] MEDS ORDERED: Miralax 17gm pkt ORAL PRN (17:30)
[2017-04-21] MEDS ORDERED: Tubing IV Secondary IV ONE (17:56)
[2017-04-21] MEDS ORDERED: 1/2 NS 1000ml IV ONE (17:56)
[2017-04-21 20:00] VITALS: BP 108/52
--- NOTE | 2017-04-21 22:27 | Pulmonology Progress Note ---
Assessment/Plan Problems: (1) Pneumonia (2) Severe sepsis (3) Dementia (4) Parkinson disease Assessment/Plan comfort care only morphin prn titrate fio2 Subjective ROS Limited/Unobtainable: Yes Interval Events: comfortable Allergies: Coded Allergies: PROCHLORPERAZINE (Verified Allergy, Intermediate, 04/19/17) Objective Last 24 Hour Vital Signs Date Time Temp Pulse Resp B/P (MAP) Pulse Ox O2 Delivery O2 Flow Rate FiO2 04/21/17 21:49 24 04/21/17 21:11 24 04/21/17 20:39 22 04/21/17 20:23 22 04/21/17 20:00 97.9 96 20 108/52 90 97.9 04/21/17 19:54 24 04/21/17 19:30 92 16 Room Air 21 04/21/17 16:00 97.5 79 18 101/56 98 97.5 04/21/17 14:30 97.7 04/21/17 14:00 10 04/21/17 14:00 97.7 04/21/17 12:20 97.7 82 20 87/49 89 97.7 04/21/17 11:54 10 04/21/17 08:04 98.8 87 18 91/52 92 98.8 04/21/17 07:48 10 04/21/17 07:48 97.9 04/21/17 07:25 91 18 Room Air 21 04/21/17 04:27 97.9 87 20 92/43 93 Room Air 97.9 04/21/17 01:45 97.5 04/21/17 00:06 97.5 84 20 115/77 93 Room Air 97.5 Intake and Output 04/20/17 04/21/17 19:00 07:00 Intake Total 200 ml 80 ml Output Total 250 ml Balance 200 ml -170 ml Intake Oral 30 ml IV Total 200 ml 50 ml Output Urine Total 250 ml # Bowel Movements 2 Objective General Appearance: WD/WN Lines, tubes and drains: peripheral HEENT: normocephalic, atraumatic Neck: non-tender, normal alignment Respiratory/Chest: chest wall non-tender, normal breath sounds Breasts: no masses Cardiovascular/Chest: normal peripheral pulses Abdomen: normal bowel sounds, non tender Extremities: normal range of motion Skin Exam: normal pigmentation Microbiology Date/Time Source Procedure Growth Status 04/19/17 14:30 Blood Blood Culture - Preliminary NO GROWTH AFTER 24 HOURS Resulted 04/19/17 14:15 Blood Blood Culture - Preliminary NO GROWTH AFTER 24 HOURS Resulted 04/19/17 15:00 Urine,Clean Catch Urine Culture - Preliminary Streptococcus Species Resulted Current Medications Medications (Trade) Dose Ordered Sig/Carrie Route PRN Reason Start Time Stop Time Status Last Admin Dose Admin Acetaminophen (Tylenol) 650 mg Q4H PRN ORAL T>100.5 04/20/17 17:30 05/19/17 17:29 Albuterol/ Ipratropium (Albuterol/ Ipratropium) 3 ml Q4H PRN HHN Shortness of Breath 04/20/17 17:30 04/24/17 17:29 Dextrose (Dextrose 50%) STAT PRN IV Hypoglycemia 04/21/17 17:30 05/19/17 17:29 Lorazepam (Ativan 2mg/ml 1ml) 2 mg Q2H PRN IV For Anxiety 04/20/17 17:30 04/26/17 17:29 Miscellaneous Medication (Narcotic Drip Rate Change) 1 ea DAILY PRN MISC . 04/20/17 17:00 05/20/17 16:59 Miscellaneous Medication (Narcotic Shift Volume) 1 ea Q12HR@0700,1900 MISC 04/20/17 19:00 05/20/17 18:59 04/21/17 19:00 Morphine Sulfate 30 ml @ 5 mls/hr CAMPAIGN SPECIALIST Protocol PRN IV COMFORT CARE 04/20/17 17:00 05/20/17 16:59 04/21/17 20:19 Morphine Sulfate (Morphine Sulfate) 4 mg Q3H PRN SUBQ Breakthrough pain / RR > 30 04/20/17 18:15 04/26/17 16:14 Ondansetron HCl (Zofran) 4 mg Q6H PRN IVP Nausea & Vomiting 04/20/17 17:30 05/19/17 17:29 Polyethylene Glycol (Miralax) 17 gm DAILYPRN PRN ORAL Constipation 04/21/17 17:30 05/19/17 17:29 CASH COLBERT Apr 21, 2017 22:27
--- NOTE | 2017-04-21 22:54 | Wound Care Consultation ---
Wound Assessment Wound Assessment #1: Wound Number: 1 Wound Present on Admission: Yes New Wound: No Status Change of Wound: No Wound Location Body Site Modif: left Wound Location Body Site: heel Wound Type: pressure ulcer Molly Test: Does not Molly Pressure Ulcer Stage: Deep Tissue Injury Wound Thickness: Full Thickness Wound Length: 3.0 Wound Width: 3.0 Wound Depth: utd Other Colors Identified: murdock Percentage Other Color: 100 Wound Drainage Amount: None Wound Drainage Odor: None/Absent Tissue Surrounding Wound: Intact Wound Assessment #2: Wound Number: 2 Wound Present on Admission: Yes New Wound: No Status Change of Wound: No Wound Location Body Site Modif: right Wound Location Body Site: heel Wound Type: pressure ulcer Molly Test: Does not Molly Pressure Ulcer Stage: Unstageable Wound Thickness: Full Thickness Wound Length: 8.5 Wound Width: 5.5 Wound Depth: utd Percent of Wound Black/Brown: 100 Wound Drainage Amount: None Wound Drainage Odor: None/Absent Tissue Surrounding Wound: Indurated Wound General Appearance: Blackened, Necrotic Wound Assessment #3: Wound Number: 3 Wound Present on Admission: Yes New Wound: No Status Change of Wound: No Wound Location Body Site Modif: upper Wound Location Body Site: back Wound Type: pressure ulcer Molly Test: Does not Molly Pressure Ulcer Stage: Deep Tissue Injury - scattered Wound Thickness: Full Thickness Percent of Wound Purple/Maroon: 100 Wound Drainage Amount: None Wound Drainage Odor: None/Absent Tissue Surrounding Wound: Intact Wound General Appearance: Reddened - Deep red Wound Assessment #4: Wound Number: 4 Wound Present on Admission: Yes New Wound: No Status Change of Wound: No Wound Location Body Site Modif: right, anterior Wound Location Body Site: knee Wound Type: pressure ulcer Molly Test: Does not Molly Pressure Ulcer Stage: III Wound Thickness: Partial Thickness Wound Length: 2.5 Wound Width: 2.0 Wound Depth: 0.1 Percent of Wound [place]/Red: 100 Wound Drainage Description: Serosanguineous Wound Drainage Amount: Scant Wound Drainage Odor: None/Absent Tissue Surrounding Wound: Erythemic Wound General Appearance: Reddened, Draining Wound Assessment #5: Wound Number: 5 Wound Present on Admission: Yes New Wound: No Status Change of Wound: No Wound Location Body Site Modif: mid Wound Location Body Site: other - Sacrococcygeal Wound Type: pressure ulcer Molly Test: Does not Molly Pressure Ulcer Stage: Deep Tissue Injury Wound Thickness: Full Thickness Wound Length: 7.0 Wound Width: 5.0 Wound Depth: utd Percent of Wound Purple/Maroon: 100 Wound Drainage Amount: None Wound Drainage Odor: None/Absent Tissue Surrounding Wound: Erythemic Wound General Appearance: Reddened - purple/maroon Wound Comment #1 Left heel DTI pressure ulcer #2 Right heel unstageable pressure ulcer #3 Upper back area scattered DTI pressure ulcer #4 Right anterior knee stage III pressure ulcer #5 Sacrococcygeal DTI pressure ulcer Recommendation -Local wound care per protocol -Keep clean and dry -Optimize nutrition -Offload both heels -Heel protector on both heels -Low air loss mattress -Turn and reposition -Assess and f/u accordingly for any changes SHELTON RAMOS RN Apr 21, 2017 22:54
[2017-04-22] VITALS: BP 119/62
[2017-04-22] MEDS: PCA Morphine 1mg/ml 30 ML IV PRN ×4 (02:08→19:51)
[2017-04-22 03:55] VITALS: BP 91/49
[2017-04-22] MEDS: Narcotic Shift Volume MISC SCH ×2 (07:28→19:05)
[2017-04-22 08:00] VITALS: BP 114/45
--- NOTE | 2017-04-22 10:42 | Pulmonology Progress Note ---
Assessment/Plan Problems: (1) Pneumonia (2) Severe sepsis (3) Dementia (4) Parkinson disease Assessment/Plan comfort care only morphin prn titrate fio2 no new events Subjective ROS Limited/Unobtainable: No Interval Events: comfortable Allergies: Coded Allergies: PROCHLORPERAZINE (Verified Allergy, Intermediate, 04/19/17) Objective Last 24 Hour Vital Signs Date Time Temp Pulse Resp B/P (MAP) Pulse Ox O2 Delivery O2 Flow Rate FiO2 04/22/17 10:30 22 04/22/17 08:02 22 04/22/17 08:00 97.3 112 22 114/45 91 97.3 04/22/17 07:59 22 04/22/17 07:56 108 18 Room Air 21 04/22/17 06:12 26 04/22/17 03:55 97.9 72 20 91/49 92 Room Air 97.9 04/22/17 02:08 16 04/22/17 01:43 18 04/22/17 00:15 85 Room Air 04/22/17 00:00 97.1 105 19 119/62 97.1 04/21/17 21:49 24 04/21/17 21:11 24 04/21/17 20:39 22 04/21/17 20:23 22 04/21/17 20:00 97.9 96 20 108/52 90 97.9 04/21/17 19:54 24 04/21/17 19:30 92 16 Room Air 21 04/21/17 16:00 97.5 79 18 101/56 98 97.5 04/21/17 14:30 97.7 04/21/17 14:00 10 04/21/17 14:00 97.7 04/21/17 12:20 97.7 82 20 87/49 89 97.7 04/21/17 11:54 10 Intake and Output 04/21/17 04/22/17 19:00 07:00 Intake Total 55 ml 60 ml Output Total 500 ml 200 ml Balance -445 ml -140 ml IV Total 55 ml 60 ml Output Urine Total 500 ml 200 ml # Voids 1 Objective General Appearance: WD/WN Lines, tubes and drains: peripheral HEENT: normocephalic, atraumatic Neck: non-tender, normal alignment Respiratory/Chest: chest wall non-tender, normal breath sounds Breasts: no masses Cardiovascular/Chest: normal peripheral pulses Abdomen: normal bowel sounds, non tender Extremities: normal range of motion Skin Exam: normal pigmentation Microbiology Date/Time Source Procedure Growth Status 04/19/17 14:30 Blood Blood Culture - Preliminary NO GROWTH AFTER 48 HOURS Resulted 04/19/17 14:15 Blood Blood Culture - Preliminary NO GROWTH AFTER 48 HOURS Resulted 04/19/17 15:00 Urine,Clean Catch Urine Culture - Final Enterococcus Faecalis Complete Current Medications Medications (Trade) Dose Ordered Sig/Carrie Route PRN Reason Start Time Stop Time Status Last Admin Dose Admin Acetaminophen (Tylenol) 650 mg Q4H PRN ORAL T>100.5 04/20/17 17:30 05/19/17 17:29 Albuterol/ Ipratropium (Albuterol/ Ipratropium) 3 ml Q4H PRN HHN Shortness of Breath 04/20/17 17:30 04/24/17 17:29 Dextrose (Dextrose 50%) STAT PRN IV Hypoglycemia 04/21/17 17:30 05/19/17 17:29 Lorazepam (Ativan 2mg/ml 1ml) 2 mg Q2H PRN IV For Anxiety 04/20/17 17:30 04/26/17 17:29 Miscellaneous Medication (Narcotic Drip Rate Change) 1 ea DAILY PRN MISC . 04/20/17 17:00 05/20/17 16:59 Miscellaneous Medication (Narcotic Shift Volume) 1 ea Q12HR@0700,1900 MISC 04/20/17 19:00 05/20/17 18:59 04/22/17 07:28 Morphine Sulfate 30 ml @ 5 mls/hr ECONOMIC ANALYST Protocol PRN IV COMFORT CARE 04/20/17 17:00 05/20/17 16:59 04/22/17 02:08 Morphine Sulfate (Morphine Sulfate) 4 mg Q3H PRN SUBQ Breakthrough pain / RR > 30 04/20/17 18:15 04/26/17 16:14 Ondansetron HCl (Zofran) 4 mg Q6H PRN IVP Nausea & Vomiting 04/20/17 17:30 05/19/17 17:29 Polyethylene Glycol (Miralax) 17 gm DAILYPRN PRN ORAL Constipation 04/21/17 17:30 05/19/17 17:29 CASH COLBERT Apr 22, 2017 10:42
[2017-04-22] MEDS ORDERED: NS 275ml ONE ×2 (11:09→11:14)
[2017-04-22 12:00] VITALS: BP 110/54
--- NOTE | 2017-04-22 14:14 | Internal Med Progress Note ---
Subjective Date of Service: Apr 22, 2017 Physician Name Vijaya Gamboa Attending Physician Rupert Feldman MD Current Medications Medications (Trade) Dose Ordered Sig/Carrie Route PRN Reason Start Time Stop Time Status Last Admin Dose Admin Acetaminophen (Tylenol) 650 mg Q4H PRN ORAL T>100.5 04/20/17 17:30 05/19/17 17:29 Albuterol/ Ipratropium (Albuterol/ Ipratropium) 3 ml Q4H PRN HHN Shortness of Breath 04/20/17 17:30 04/24/17 17:29 Dextrose (Dextrose 50%) STAT PRN IV Hypoglycemia 04/21/17 17:30 05/19/17 17:29 Lorazepam (Ativan 2mg/ml 1ml) 2 mg Q2H PRN IV For Anxiety 04/20/17 17:30 04/26/17 17:29 Miscellaneous Medication (Narcotic Drip Rate Change) 1 ea DAILY PRN MISC . 04/22/17 14:15 05/22/17 23:59 UNV Miscellaneous Medication (Narcotic Shift Volume) 1 ea Q12HR@0700,1900 MISC 04/22/17 19:00 04/24/17 18:59 Morphine Sulfate 30 ml @ 5 mls/hr PAPER PATTERN FOLDER Protocol PRN IV COMFORT CARE 04/20/17 14:15 05/22/17 14:14 Morphine Sulfate (Morphine Sulfate) 4 mg Q3H PRN SUBQ Breakthrough pain / RR > 30 04/20/17 18:15 04/26/17 16:14 Ondansetron HCl (Zofran) 4 mg Q6H PRN IVP Nausea & Vomiting 04/20/17 17:30 05/19/17 17:29 Polyethylene Glycol (Miralax) 17 gm DAILYPRN PRN ORAL Constipation 04/21/17 17:30 05/19/17 17:29 Allergies: Coded Allergies: PROCHLORPERAZINE (Verified Allergy, Intermediate, 04/19/17) ROS Limited/Unobtainable: Yes Subjective 71 YO F admitted with fever and hypotension. Now left pneumonia. Comfort care protocol. Cover for Int Hugh-Dr. Feldman Objective Last Vital Signs Date Time Temp Pulse Resp B/P (MAP) Pulse Ox O2 Delivery O2 Flow Rate FiO2 04/22/17 14:08 98.1 04/22/17 13:38 18 04/22/17 12:00 91 Nasal Cannula 2.0 04/22/17 12:00 112 110/54 04/22/17 07:56 21 Microbiology Date/Time Source Procedure Growth Status 04/19/17 14:30 Blood Blood Culture - Preliminary NO GROWTH AFTER 48 HOURS Resulted 04/19/17 14:15 Blood Blood Culture - Preliminary NO GROWTH AFTER 48 HOURS Resulted 04/19/17 15:00 Urine,Clean Catch Urine Culture - Final Enterococcus Faecalis Complete Intake and Output 04/21/17 04/22/17 19:00 07:00 Intake Total 55 ml 60 ml Output Total 500 ml 200 ml Balance -445 ml -140 ml IV Total 55 ml 60 ml Output Urine Total 500 ml 200 ml # Voids 1 Objective General Appearance: WD/WN, mild distress, lethargic EENT: normal ENT inspection Neck: non-tender, normal alignment, supple Cardiovascular: normal peripheral pulses, normal rate, regular rhythm, no gallop/murmur, no JVD Respiratory/Chest: respiratory distress, crackles/rales, rhonchi - bilaterally , expiratory wheezing Abdomen: normal bowel sounds, non tender, soft, no organomegaly, no mass Extremities: normal range of motion, non-tender Skin: normal pigmentation, warm/dry Assessment/Plan Problem List: (1) Alzheimer's dementia (2) Iron deficiency anemia (3) Depression (4) Leukocytosis (5) Altered mental status (6) Fever (7) Diabetes mellitus, type II (8) Pneumonia Assessment & Plan: Off antibiotics-see ID note. (9) Severe sepsis (10) Parkinson disease (11) Dysphagia Assessment & Plan: see swallow eval Assessment/Plan Comfort care protocol per family request VIJAYA GAMBOA Apr 22, 2017 14:14
[2017-04-22] MEDS ORDERED: Rate Change Narcotic Drip MISC PRN (14:15)
[2017-04-22 16:00] VITALS: BP 107/71
[2017-04-22 20:00] VITALS: BP 103/55
[2017-04-23] VITALS: BP 90/38
[2017-04-23] MEDS: PCA Morphine 1mg/ml 30 ML IV PRN ×4 (01:22→18:53)
[2017-04-23 04:00] VITALS: BP 85/44
[2017-04-23] MEDS: Narcotic Shift Volume MISC SCH ×2 (07:00→19:19)
[2017-04-23 08:00] VITALS: BP 100/43
[2017-04-23 11:48] VITALS: BP 95/44
--- NOTE | 2017-04-23 15:14 | Internal Med Progress Note ---
Subjective Date of Service: Apr 23, 2017 Physician Name Vijaya Gamboa Attending Physician Rupert Feldman MD Current Medications Medications (Trade) Dose Ordered Sig/Carrie Route PRN Reason Start Time Stop Time Status Last Admin Dose Admin Acetaminophen (Tylenol) 650 mg Q4H PRN ORAL T>100.5 04/20/17 17:30 05/19/17 17:29 Albuterol/ Ipratropium (Albuterol/ Ipratropium) 3 ml Q4H PRN HHN Shortness of Breath 04/20/17 17:30 04/24/17 17:29 Dextrose (Dextrose 50%) STAT PRN IV Hypoglycemia 04/21/17 17:30 05/19/17 17:29 Lorazepam (Ativan 2mg/ml 1ml) 2 mg Q2H PRN IV For Anxiety 04/20/17 17:30 04/26/17 17:29 Miscellaneous Medication (Narcotic Shift Volume) 1 ea Q12HR@0700,1900 MISC 04/22/17 19:00 04/24/17 18:59 04/23/17 07:00 Morphine Sulfate 30 ml @ 5 mls/hr CHARGE ENTRY CLERK Protocol PRN IV COMFORT CARE 04/20/17 14:15 05/22/17 14:14 04/23/17 12:54 Morphine Sulfate (Morphine Sulfate) 4 mg Q3H PRN SUBQ Breakthrough pain / RR > 30 04/20/17 18:15 04/26/17 16:14 04/23/17 01:39 Ondansetron HCl (Zofran) 4 mg Q6H PRN IVP Nausea & Vomiting 04/20/17 17:30 05/19/17 17:29 Polyethylene Glycol (Miralax) 17 gm DAILYPRN PRN ORAL Constipation 04/21/17 17:30 05/19/17 17:29 Allergies: Coded Allergies: PROCHLORPERAZINE (Verified Allergy, Intermediate, 04/19/17) ROS Limited/Unobtainable: Yes Subjective 71 YO F admitted with fever and hypotension. Now left pneumonia. Comfort care protocol. Cover for Int Hugh-Dr. Feldman Objective Last Vital Signs Date Time Temp Pulse Resp B/P (MAP) Pulse Ox O2 Delivery O2 Flow Rate FiO2 04/23/17 13:14 16 04/23/17 11:48 98.2 94 95/44 93 98.2 04/23/17 08:15 Nasal Cannula 3.0 32 Intake and Output 04/22/17 04/23/17 19:00 07:00 Intake Total 25 ml 35 ml Output Total 550 ml 200 ml Balance -525 ml -165 ml IV Total 25 ml 35 ml Output Urine Total 550 ml 200 ml Objective General Appearance: WD/WN, mild distress, lethargic EENT: normal ENT inspection Neck: non-tender, normal alignment, supple Cardiovascular: normal peripheral pulses, normal rate, regular rhythm, no gallop/murmur, no JVD Respiratory/Chest: respiratory distress, crackles/rales, rhonchi - bilaterally , expiratory wheezing Abdomen: normal bowel sounds, non tender, soft, no organomegaly, no mass Extremities: normal range of motion, non-tender Skin: normal pigmentation, warm/dry Assessment/Plan Problem List: (1) Alzheimer's dementia (2) Iron deficiency anemia (3) Depression (4) Leukocytosis (5) Altered mental status (6) Fever (7) Diabetes mellitus, type II (8) Pneumonia Assessment & Plan: Off antibiotics-see ID note. (9) Severe sepsis (10) Parkinson disease (11) Dysphagia Assessment & Plan: see swallow eval Assessment/Plan Comfort care protocol per family request VIJAYA GAMBOA Apr 23, 2017 15:14
--- NOTE | 2017-04-23 15:43 | Cardiology Report ---
APPROVED REPORT EKG Measurement Heart [id number] [id number] Sinus tachycardia Nonspecific T wave abnormality Abnormal ECG
[2017-04-23 16:00] VITALS: BP 90/41
--- NOTE | 2017-04-23 17:43 | Pulmonology Progress Note ---
Assessment/Plan Problems: (1) Pneumonia (2) Severe sepsis (3) Dementia (4) Parkinson disease Assessment/Plan comfort care only morphin prn titrate fio2 no new events Subjective Allergies: Coded Allergies: PROCHLORPERAZINE (Verified Allergy, Intermediate, 04/19/17) Objective Last 24 Hour Vital Signs Date Time Temp Pulse Resp B/P (MAP) Pulse Ox O2 Delivery O2 Flow Rate FiO2 04/23/17 16:33 16 04/23/17 16:00 98.2 18 90/41 93 98.2 04/23/17 13:14 16 04/23/17 11:48 98.2 94 18 95/44 93 98.2 04/23/17 08:15 93 Nasal Cannula 3.0 32 04/23/17 08:15 Nasal Cannula 3.0 32 04/23/17 08:14 95 20 Nasal Cannula 3.0 32 04/23/17 08:00 98.2 98 19 100/43 93 98.2 04/23/17 07:08 16 04/23/17 07:06 16 04/23/17 04:31 16 04/23/17 04:00 98.4 93 17 85/44 92 98.4 04/23/17 01:39 18 04/23/17 01:38 18 04/23/17 00:12 18 04/23/17 00:00 98.8 100 21 90/38 93 Room Air 98.8 04/22/17 20:59 94 22 Nasal Cannula 3.0 32 04/22/17 20:58 Nasal Cannula 3.0 32 04/22/17 20:58 93 Nasal Cannula 3.0 32 04/22/17 20:00 100.0 97 20 103/55 90 Nasal Cannula 100.0 04/22/17 19:51 18 04/22/17 19:51 18 Intake and Output 04/22/17 04/23/17 19:00 07:00 Intake Total 25 ml 35 ml Output Total 550 ml 200 ml Balance -525 ml -165 ml IV Total 25 ml 35 ml Output Urine Total 550 ml 200 ml Objective General Appearance: WD/WN Lines, tubes and drains: peripheral HEENT: normocephalic, atraumatic Neck: non-tender, normal alignment Respiratory/Chest: chest wall non-tender, normal breath sounds Breasts: no masses Cardiovascular/Chest: normal peripheral pulses Abdomen: normal bowel sounds, non tender Extremities: normal range of motion Skin Exam: normal pigmentation Current Medications Medications (Trade) Dose Ordered Sig/Carrie Route PRN Reason Start Time Stop Time Status Last Admin Dose Admin Acetaminophen (Tylenol) 650 mg Q4H PRN ORAL T>100.5 04/20/17 17:30 05/19/17 17:29 Albuterol/ Ipratropium (Albuterol/ Ipratropium) 3 ml Q4H PRN HHN Shortness of Breath 04/20/17 17:30 04/24/17 17:29 Dextrose (Dextrose 50%) STAT PRN IV Hypoglycemia 04/21/17 17:30 05/19/17 17:29 Lorazepam (Ativan 2mg/ml 1ml) 2 mg Q2H PRN IV For Anxiety 04/20/17 17:30 04/26/17 17:29 Miscellaneous Medication (Narcotic Shift Volume) 1 ea Q12HR@0700,1900 MISC 04/22/17 19:00 04/24/17 18:59 04/23/17 07:00 Morphine Sulfate 30 ml @ 5 mls/hr CORPORATE RECYCLING MANAGER Protocol PRN IV COMFORT CARE 04/20/17 14:15 05/22/17 14:14 04/23/17 12:54 Morphine Sulfate (Morphine Sulfate) 4 mg Q3H PRN SUBQ Breakthrough pain / RR > 30 04/20/17 18:15 04/26/17 16:14 04/23/17 01:39 Ondansetron HCl (Zofran) 4 mg Q6H PRN IVP Nausea & Vomiting 04/20/17 17:30 05/19/17 17:29 Polyethylene Glycol (Miralax) 17 gm DAILYPRN PRN ORAL Constipation 04/21/17 17:30 05/19/17 17:29 CASH COLBERT Apr 23, 2017 17:43
[2017-04-23 20:00] VITALS: BP 96/39
[2017-04-24] VITALS: BP 100/49
[2017-04-24] MEDS: PCA Morphine 1mg/ml 30 ML IV PRN ×4 (02:01→20:05)
[2017-04-24 04:00] VITALS: BP 110/53
[2017-04-24] MEDS: Narcotic Shift Volume MISC SCH (07:15)
[2017-04-24 08:00] VITALS: BP 109/56
--- NOTE | 2017-04-24 10:44 | Internal Med Progress Note ---
Subjective Date of Service: Apr 24, 2017 Physician Name Vijaya Gamboa Attending Physician Rupert Feldman MD Current Medications Medications (Trade) Dose Ordered Sig/Carrie Route PRN Reason Start Time Stop Time Status Last Admin Dose Admin Acetaminophen (Tylenol) 650 mg Q4H PRN ORAL T>100.5 04/20/17 17:30 05/19/17 17:29 Albuterol/ Ipratropium (Albuterol/ Ipratropium) 3 ml Q4H PRN HHN Shortness of Breath 04/20/17 17:30 04/24/17 17:29 Dextrose (Dextrose 50%) STAT PRN IV Hypoglycemia 04/21/17 17:30 05/19/17 17:29 Lorazepam (Ativan 2mg/ml 1ml) 2 mg Q2H PRN IV For Anxiety 04/20/17 17:30 04/26/17 17:29 Miscellaneous Medication (Narcotic Shift Volume) 1 ea Q12HR@0700,1900 MISC 04/22/17 19:00 04/24/17 18:59 04/24/17 07:15 Morphine Sulfate 30 ml @ 5 mls/hr MANAGER ENVIRONMENTAL HEALTH Protocol PRN IV COMFORT CARE 04/20/17 14:15 05/22/17 14:14 04/24/17 08:11 Morphine Sulfate (Morphine Sulfate) 4 mg Q3H PRN SUBQ Breakthrough pain / RR > 30 04/20/17 18:15 04/26/17 16:14 04/23/17 01:39 Ondansetron HCl (Zofran) 4 mg Q6H PRN IVP Nausea & Vomiting 04/20/17 17:30 05/19/17 17:29 Polyethylene Glycol (Miralax) 17 gm DAILYPRN PRN ORAL Constipation 04/21/17 17:30 05/19/17 17:29 Allergies: Coded Allergies: PROCHLORPERAZINE (Verified Allergy, Intermediate, 04/19/17) ROS Limited/Unobtainable: Yes Subjective 71 YO F admitted with fever and hypotension. Now left pneumonia. Comfort care protocol. Cover for Int Alexandro Feldman Objective Last Vital Signs Date Time Temp Pulse Resp B/P (MAP) Pulse Ox O2 Delivery O2 Flow Rate FiO2 04/24/17 08:41 99.7 04/24/17 08:23 Nasal Cannula 3.0 32 04/24/17 08:23 96 04/24/17 08:22 95 20 04/24/17 08:00 109/56 Intake and Output 04/23/17 04/24/17 19:00 07:00 Intake Total 55 ml 55 ml Output Total 450 ml 250 ml Balance -395 ml -195 ml IV Total 55 ml 55 ml Output Urine Total 450 ml 250 ml Objective General Appearance: WD/WN, mild distress, lethargic EENT: normal ENT inspection Neck: non-tender, normal alignment, supple Cardiovascular: normal peripheral pulses, normal rate, regular rhythm, no gallop/murmur, no JVD Respiratory/Chest: Labored respirations, distress, crackles/rales, rhonchi - bilaterally, expiratory wheezing Abdomen: normal bowel sounds, non tender, soft, no organomegaly, no mass Extremities: normal range of motion, non-tender Skin: normal pigmentation, warm/dry Assessment/Plan Problem List: (1) Alzheimer's dementia (2) Iron deficiency anemia (3) Depression (4) Leukocytosis (5) Altered mental status (6) Fever (7) Diabetes mellitus, type II (8) Pneumonia Assessment & Plan: Off antibiotics-see ID note. (9) Severe sepsis (10) Parkinson disease (11) Dysphagia Assessment & Plan: see swallow eval Assessment/Plan Comfort care protocol per family request VIJAYA GAMBOA Apr 24, 2017 10:43
[2017-04-24 12:00] VITALS: BP 98/49
[2017-04-24 16:00] VITALS: BP 110/59
[2017-04-24 20:00] VITALS: BP 116/57
[2017-04-25] VITALS: BP 117/57
[2017-04-25] MEDS: PCA Morphine 1mg/ml 30 ML IV PRN ×4 (02:11→20:16)
[2017-04-25 04:00] VITALS: BP 111/58
[2017-04-25] MEDS ORDERED: Rate Change Narcotic Drip MISC PRN (07:00)
[2017-04-25] MEDS: Narcotic Shift Volume MISC SCH ×2 (07:01→19:05)
[2017-04-25 08:00] VITALS: BP 116/63
[2017-04-25 12:00] VITALS: BP 105/54
[2017-04-25 16:00] VITALS: BP 109/63
--- NOTE | 2017-04-25 17:27 | Internal Med Progress Note ---
Subjective Date of Service: Apr 25, 2017 Physician Name Dashawn Gamboa Attending Physician Rupert Feldman MD Current Medications Medications (Trade) Dose Ordered Sig/Carrie Route PRN Reason Start Time Stop Time Status Last Admin Dose Admin Acetaminophen (Tylenol) 650 mg Q4H PRN ORAL T>100.5 04/20/17 17:30 05/19/17 17:29 Dextrose (Dextrose 50%) STAT PRN IV Hypoglycemia 04/21/17 17:30 05/19/17 17:29 Lorazepam (Ativan 2mg/ml 1ml) 2 mg Q2H PRN IV For Anxiety 04/20/17 17:30 04/26/17 17:29 Miscellaneous Medication (Narcotic Drip Rate Change) 1 ea DAILY PRN MISC . 04/25/17 07:00 05/25/17 06:59 Miscellaneous Medication (Narcotic Shift Volume) 1 ea Q12HR@0700,1900 MISC 04/25/17 07:00 05/25/17 06:59 04/25/17 07:01 Morphine Sulfate 30 ml @ 5 mls/hr GARMENT PARTS CUTTER HAND Protocol PRN IV COMFORT CARE 04/20/17 14:15 05/22/17 14:14 04/25/17 14:10 Morphine Sulfate (Morphine Sulfate) 4 mg Q3H PRN SUBQ Breakthrough pain / RR > 30 04/20/17 18:15 04/26/17 16:14 04/23/17 01:39 Ondansetron HCl (Zofran) 4 mg Q6H PRN IVP Nausea & Vomiting 04/20/17 17:30 05/19/17 17:29 Polyethylene Glycol (Miralax) 17 gm DAILYPRN PRN ORAL Constipation 04/21/17 17:30 05/19/17 17:29 Allergies: Coded Allergies: PROCHLORPERAZINE (Verified Allergy, Intermediate, 04/19/17) ROS Limited/Unobtainable: Yes Subjective 71 YO F admitted with fever and hypotension. Now left pneumonia. Comfort care protocol. More lethargic. Agonal respirations. Cover for Int Med-Dr. Feldman Objective Last Vital Signs Date Time Temp Pulse Resp B/P (MAP) Pulse Ox O2 Delivery O2 Flow Rate FiO2 04/25/17 16:00 97.2 98 16 109/63 89 97.2 04/25/17 07:22 Nasal Cannula 2.0 28 Intake and Output 04/24/17 04/25/17 19:00 07:00 Intake Total 20 ml 45 ml Output Total 200 ml 400 ml Balance -180 ml -355 ml IV Total 20 ml 45 ml Output Urine Total 200 ml 400 ml Objective General Appearance: WD/WN, mild distress, lethargic EENT: normal ENT inspection Neck: non-tender, normal alignment, supple Cardiovascular: normal peripheral pulses, normal rate, regular rhythm, no gallop/murmur, no JVD Respiratory/Chest: Labored respirations, distress, crackles/rales, rhonchi - bilaterally, expiratory wheezing Abdomen: normal bowel sounds, non tender, soft, no organomegaly, no mass Extremities: normal range of motion, non-tender Skin: normal pigmentation, warm/dry Assessment/Plan Problem List: (1) Alzheimer's dementia (2) Iron deficiency anemia (3) Depression (4) Leukocytosis (5) Altered mental status (6) Fever (7) Diabetes mellitus, type II (8) Pneumonia Assessment & Plan: Off antibiotics-see ID note. (9) Severe sepsis (10) Parkinson disease (11) Dysphagia Assessment & Plan: see swallow eval Status: not improved Assessment/Plan Comfort care protocol per family request DASHAWN GAMBOA Apr 25, 2017 17:27
[2017-04-25 19:56] VITALS: BP 99/53
--- NOTE | 2017-04-25 21:24 | Pulmonology Progress Note ---
Assessment/Plan Problems: (1) Pneumonia (2) Severe sepsis (3) Dementia (4) Parkinson disease Assessment/Plan comfort care only morphin prn titrate fio2 no new events Subjective Allergies: Coded Allergies: PROCHLORPERAZINE (Verified Allergy, Intermediate, 04/19/17) Objective Last 24 Hour Vital Signs Date Time Temp Pulse Resp B/P (MAP) Pulse Ox O2 Delivery O2 Flow Rate FiO2 04/25/17 20:16 15 04/25/17 19:56 98.4 87 18 99/53 88 98.4 04/25/17 16:00 97.2 98 16 109/63 89 97.2 04/25/17 16:00 16 04/25/17 14:40 97.2 04/25/17 14:10 97.2 04/25/17 12:00 97.2 83 18 105/54 91 97.2 04/25/17 12:00 13 04/25/17 08:25 99.3 04/25/17 08:00 14 04/25/17 08:00 96.8 93 18 116/63 90 96.8 04/25/17 07:22 Nasal Cannula 2.0 28 04/25/17 07:21 92 Nasal Cannula 2.0 28 04/25/17 07:20 88 20 Nasal Cannula 2.0 28 04/25/17 04:11 16 04/25/17 04:00 90 Nasal Cannula 3.0 04/25/17 04:00 99.3 93 20 111/58 90 99.3 04/25/17 02:11 16 04/25/17 02:11 99.7 04/25/17 02:00 16 04/25/17 00:00 18 04/25/17 00:00 89 Nasal Cannula 3.0 04/25/17 00:00 99.7 96 21 117/57 89 99.7 Intake and Output 04/24/17 04/25/17 19:00 07:00 Intake Total 20 ml 45 ml Output Total 200 ml 400 ml Balance -180 ml -355 ml IV Total 20 ml 45 ml Output Urine Total 200 ml 400 ml Objective General Appearance: WD/WN Lines, tubes and drains: peripheral HEENT: normocephalic, atraumatic Neck: non-tender, normal alignment Respiratory/Chest: chest wall non-tender, normal breath sounds Breasts: no masses Cardiovascular/Chest: normal peripheral pulses Abdomen: normal bowel sounds, non tender Extremities: normal range of motion Skin Exam: normal pigmentation Current Medications Medications (Trade) Dose Ordered Sig/Carrie Route PRN Reason Start Time Stop Time Status Last Admin Dose Admin Acetaminophen (Tylenol) 650 mg Q4H PRN ORAL T>100.5 04/20/17 17:30 05/19/17 17:29 Dextrose (Dextrose 50%) STAT PRN IV Hypoglycemia 04/21/17 17:30 05/19/17 17:29 Lorazepam (Ativan 2mg/ml 1ml) 2 mg Q2H PRN IV For Anxiety 04/20/17 17:30 04/26/17 17:29 Miscellaneous Medication (Narcotic Drip Rate Change) 1 ea DAILY PRN MISC . 04/25/17 07:00 05/25/17 06:59 Miscellaneous Medication (Narcotic Shift Volume) 1 ea Q12HR@0700,1900 MISC 04/25/17 07:00 05/25/17 06:59 04/25/17 19:05 Morphine Sulfate 30 ml @ 5 mls/hr SHOTGUN SHELL ASSEMBLY MACHINE ADJUSTER Protocol PRN IV COMFORT CARE 04/20/17 14:15 05/22/17 14:14 04/25/17 20:16 Morphine Sulfate (Morphine Sulfate) 4 mg Q3H PRN SUBQ Breakthrough pain / RR > 30 04/20/17 18:15 04/26/17 16:14 04/23/17 01:39 Ondansetron HCl (Zofran) 4 mg Q6H PRN IVP Nausea & Vomiting 04/20/17 17:30 05/19/17 17:29 Polyethylene Glycol (Miralax) 17 gm DAILYPRN PRN ORAL Constipation 04/21/17 17:30 05/19/17 17:29 CASH COLBERT Apr 25, 2017 21:16
[2017-04-26] VITALS: BP 87/52
[2017-04-26] MEDS: PCA Morphine 1mg/ml 30 ML IV PRN ×2 (02:15→08:31)
[2017-04-26 04:00] VITALS: BP 109/50
[2017-04-26] MEDS: Narcotic Shift Volume MISC SCH (07:16)
[2017-04-26 08:27] VITALS: BP 71/31
[2017-04-26] MEDS ORDERED: NS 500ML ONE (09:24)
--- NOTE | 2017-04-26 11:54 | Internal Med Progress Note ---
Subjective Physician Name Dashawn Gamboa Attending Physician Rupert Feldman MD Current Medications Medications (Trade) Dose Ordered Sig/Carrie Route PRN Reason Start Time Stop Time Status Last Admin Dose Admin Acetaminophen (Tylenol) 650 mg Q4H PRN ORAL T>100.5 04/20/17 17:30 05/19/17 17:29 Dextrose (Dextrose 50%) STAT PRN IV Hypoglycemia 04/21/17 17:30 05/19/17 17:29 Lorazepam (Ativan 2mg/ml 1ml) 2 mg Q2H PRN IV For Anxiety 04/20/17 17:30 04/26/17 17:29 Miscellaneous Medication (Narcotic Drip Rate Change) 1 ea DAILY PRN MISC . 04/25/17 07:00 05/25/17 06:59 Miscellaneous Medication (Narcotic Shift Volume) 1 ea Q12HR@0700,1900 MISC 04/25/17 07:00 05/25/17 06:59 04/26/17 07:16 Morphine Sulfate 30 ml @ 5 mls/hr EDGER FEEDER Protocol PRN IV COMFORT CARE 04/20/17 14:15 05/22/17 14:14 04/26/17 08:31 Morphine Sulfate (Morphine Sulfate) 4 mg Q3H PRN SUBQ Breakthrough pain / RR > 30 04/20/17 18:15 04/26/17 16:14 04/23/17 01:39 Ondansetron HCl (Zofran) 4 mg Q6H PRN IVP Nausea & Vomiting 04/20/17 17:30 05/19/17 17:29 Polyethylene Glycol (Miralax) 17 gm DAILYPRN PRN ORAL Constipation 04/21/17 17:30 05/19/17 17:29 Allergies: Coded Allergies: PROCHLORPERAZINE (Verified Allergy, Intermediate, 04/19/17) ROS Limited/Unobtainable: Yes Subjective 71 YO F admitted with fever and hypotension. Now left pneumonia. Comfort care protocol. More lethargic. Agonal respirations. Cover for Int Med-Dr. Feldman Objective Last Vital Signs Date Time Temp Pulse Resp B/P (MAP) Pulse Ox O2 Delivery O2 Flow Rate FiO2 04/26/17 08:27 97.2 64 28 71/31 63 Nasal Cannula 97.2 04/26/17 08:05 2.0 28 Intake and Output 04/25/17 04/26/17 19:00 07:00 Intake Total 45 ml 50 ml Output Total 100 ml 100 ml Balance -55 ml -50 ml IV Total 45 ml 50 ml Output Urine Total 100 ml 100 ml Objective General Appearance: WD/WN, mild distress, lethargic EENT: normal ENT inspection Neck: non-tender, normal alignment, supple Cardiovascular: normal peripheral pulses, normal rate, regular rhythm, no gallop/murmur, no JVD Respiratory/Chest: Labored respirations, distress, crackles/rales, rhonchi - bilaterally, expiratory wheezing Abdomen: normal bowel sounds, non tender, soft, no organomegaly, no mass Extremities: normal range of motion, non-tender Skin: normal pigmentation, warm/dry Assessment/Plan Problem List: (1) Alzheimer's dementia (2) Iron deficiency anemia (3) Depression (4) Leukocytosis (5) Altered mental status (6) Fever (7) Diabetes mellitus, type II (8) Pneumonia Assessment & Plan: Off antibiotics-see ID note. (9) Severe sepsis (10) Parkinson disease (11) Dysphagia Assessment & Plan: see swallow eval Assessment/Plan Comfort care protocol per family request DASHAWN GAMBOA Apr 26, 2017 11:54
--- NOTE | 2017-04-28 06:32 | Discharge Summary ---
Discharge Summary Hospital Course Date of Admission Apr 19, 2017 at 15:26 Date of Discharge Apr 26, 2017 at 09:25 Admitting Diagnosis SEPSIS,PNEUMONIA HPI Lluvia Baker is a 71 year old female who was admitted on Apr 19, 2017 at 15:26 for Pneumonia Hospital Course [id number] Discharge Discharge Disposition Patient was discharged to Discharge Diagnoses: Senait Ruiz NP Apr 28, 2017 06:32
--- NOTE | 2017-04-29 02:15 | Discharge Summary 2 SIG ---
DATE OF ADMISSION: 04/19/2017 DATE OF DISCHARGE: 04/26/2017 BRIEF SUMMARY: The patient was an unfortunate 71-year-old female, who was a resident of [facility], presented to ED for complaints of low blood pressure and fever. The patient has history of Alzheimer's dementia and at intermediate was found to have blood pressure of 90/50. She was transported to [facility]. Initial blood pressure was 96/41. She had leukocytosis. WBC of 19 and was tachycardic, heart rate of 102. She had a chest x-ray done that showed patchy opacities on the left lung concerning for pneumonia. She was then admitted for hypotension and pneumonia with possible sepsis. She was started on respiratory treatments and chest physiotherapy. She was given heparin for DVT prophylaxis. She was placed on vancomycin and Zosyn empirically pending culture results. The patient was DNR. She was given IV fluids. She underwent swallow evaluation and recommended liquefied pureed nectar thick soup consistency with nectar thick liquids with strict aspiration precaution. Per family request, the patient was placed on comfort care. She came in multiple pressure ulcers and a right knee stage III pressure ulcer. She was given wound care with frequent turning and positioning and off-loading. She was started on morphine drip and the patient eventually . FINAL DIAGNOSES: 1. Severe sepsis. 2. Pneumonia. 3. Alzheimer's dementia. 4. Iron deficiency anemia. 5. Altered mental status/encephalopathy. 6. Dysphagia. 7. Parkinson disease. 8. Diabetes mellitus. 9. Comfort care/palliative care. 10. Multiple pressure ulcer present on admission. Refer to old documentation. Dashawn Almeida M.D. I have been assigned to dictate discharge summary on this account and I was not involved in the patient's management. Senait Ruiz N.P. DR: KAY JOB#: [id number] CC: NYDIA
== END 2017-04-26 09:25 | disposition expired | DRG 871 ==
LOC: EDSEX 13:03 → EDBD 13:03 → EMR 13:15 → EDBEDREQ 14:21 → 2E 15:26 → EDBEDREQ 15:53 → 4W 04-20 16:29
DX: A41.9 Sepsis, unspecified organism (principal); G93.40 Encephalopathy, unspecified; L89.100 Pressure ulcer of unspecified part of back, unstageable; L89.150 Pressure ulcer of sacral region, unstageable; J18.9 Pneumonia, unspecified organism; G20 Parkinson's disease; L89.893 Pressure ulcer of other site, stage 3; R13.10 Dysphagia, unspecified; G30.9 Alzheimer's disease, unspecified; F02.80 Dementia in other diseases classified elsewhere, unspecified severity, without behavioral disturbance, psychotic disturbance, mood disturbance, and anxiety; E11.9 Type 2 diabetes mellitus without complications; D50.9 Iron deficiency anemia, unspecified; F32.9 Major depressive disorder, single episode, unspecified; Z51.5 Encounter for palliative care; R65.20 Severe sepsis without septic shock; Z88.8 Allergy status to other drugs, medicaments and biological substances; Z66 Do not resuscitate; L89.620 Pressure ulcer of left heel, unstageable; L89.610 Pressure ulcer of right heel, unstageable
CPT/HCPCS: 36415; 71045; 80053; 80069; 81003; 82270; 82550; 82553; 82962; 83605; 84484; 85007; 85025; 87040; 87086; 87181; 93005; 94664; 94760; 99285; J1815